=== PATIENT | male | born 2000 | race Caucasian/White ===

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

== ENCOUNTER → 2019-03-16 | Outpatient (CLI) | payer OTHER ==
[~2019-03-16] MED LIST changes: +E-Z-GAS II EFFERVESCENT PACKET (SODIUM BICARB./CITRIC ACID/SIMETHICONE) As Ordered ONE; +E-Z-HD 98% w/w 340GM SUSP BTL As Ordered ONE; +E-Z-PAQUE 96% w/w SUSP 176GM BTL As Ordered ONE
--- NOTE | 2019-03-16 18:25 | REP ---
UPPER GI SINGLE CONTRAST The procedure was performed under the direct supervision of Dr. Leblanc. The images were reviewed with Dr. Leblanc. The professional sports scout film shows no organomegaly or pathological masses. The test gas pattern is nonspecific. Liquid barium was administered in the erect and prone oblique positions. The oral and pharyngeal stages of deglutition are unremarkable. Esophageal transport is prompt and efficient and there is no esophagitis stricture mucosal ring or hiatal hernia. Gastroesophageal reflux is not demonstrated on this examination. The stomach is grossly normal. The rugal folds are smooth and regular. There is no evidence of gastritis neoplasm or ulcer disease. The duodenum is grossly normal. The mucosal folds are smooth and regular. There is no evidence of duodenitis pancreatitis peptic ulcer disease or neoplasm. The visualized portion of the proximal small bowel appears normal in course and caliber. Impression: Essentially unremarkable single contrast upper GI examination. 2 minutes of fluoroscopy time was utilized for this procedure. Electronically Signed by MAR Crowell 03/16/2019 02:52 P Electronically Signed by Gera Leblanc MD 03/16/2019 06:17 P
== END ==
LOC: M RAD 13:50
PROVIDERS: ATTEND Physician Assistant Medical
DX: R11.2 Nausea with vomiting, unspecified (principal)

== ENCOUNTER 2020-08-06 10:39 | Emergency (ER) | payer OTHER ==
[~2020-08-06] VITALS: Ht 175.3 cm; Wt 59.1 kg
[~2020-08-06 10:39] MED LIST changes: -E-Z-GAS II EFFERVESCENT PACKET (SODIUM BICARB./CITRIC ACID/SIMETHICONE) As Ordered ONE; -E-Z-HD 98% w/w 340GM SUSP BTL As Ordered ONE; -E-Z-PAQUE 96% w/w SUSP 176GM BTL As Ordered ONE
[2020-08-06] MEDS ORDERED: NORCO, ANEXSIA 5/325MG TABLET (HYDROcodone/ACETAMINOPHEN) PO ONE (12:05)
[2020-08-06] MEDS ORDERED: BENZOCAINE 20% GEL 9GM TUBE (ANBESOL MAX STRENGTH) TOP ONE (12:05)
[2020-08-06] MEDS ORDERED: IBUPROFEN 800 MG TAB PO ONE (12:05)
[2020-08-06] MEDS ORDERED: IBUP80TA PO (12:35)
[2020-08-06] MEDS ORDERED: CLEO150C PO (12:35)
[2020-08-06] MEDS ORDERED: HYDR-3715 PO (12:38)
[2020-08-06 12:47] VITALS: BP 126/80
== END 2020-08-06 12:56 | disposition home or self-care (01) ==
LOC: M ED 10:39
DX: R68.84 Jaw pain (principal); K08.9 Disorder of teeth and supporting structures, unspecified; K01.1 Impacted teeth; F41.9 Anxiety disorder, unspecified; F33.9 Major depressive disorder, recurrent, unspecified; F17.200 Nicotine dependence, unspecified, uncomplicated; Z88.1 Allergy status to other antibiotic agents

== ENCOUNTER 2020-11-13 17:00 | Emergency (ER) | payer OTHER ==
[~2020-11-13] VITALS: Ht 167.6 cm; Wt 55.1 kg
[~2020-11-13 17:00] MED LIST changes: +CLEO150C PO; +HYDR-3715 PO; +IBUP80TA PO
[2020-11-13 19:27] VITALS: BP 133/79
== END 2020-11-13 19:26 | disposition home or self-care (01) ==
LOC: M ED 17:00
DX: F41.9 Anxiety disorder, unspecified (principal); F32.9 Major depressive disorder, single episode, unspecified; F12.10 Cannabis abuse, uncomplicated; F17.200 Nicotine dependence, unspecified, uncomplicated; Z91.5 Personal history of self-harm; Z88.1 Allergy status to other antibiotic agents; Z88.8 Allergy status to other drugs, medicaments and biological substances